=== PATIENT | female | born 1945 | race Caucasian/White ===

== ENCOUNTER 2018-01-14 10:29 | Emergency (ER) | payer MEDICARE, OTHER ==
[~2018-01-14 10:29] MED LIST: GABA-529 PO; IBUP-2076 PO; PRAM0.122 PO; SIMV20TA6 PO; VALA100027 PO
[2018-01-14] MEDS ORDERED: PREDNISONE 20 MG TABLET ONE (10:41)
== END 2018-01-14 12:19 | disposition home or self-care (01) ==
LOC: EDH 10:29
DX: I87.8 Other specified disorders of veins (principal); M17.0 Bilateral primary osteoarthritis of knee; R60.0 Localized edema; E78.5 Hyperlipidemia, unspecified; Z87.891 Personal history of nicotine dependence
CPT/HCPCS: 93971

== ENCOUNTER 2018-11-20 11:21 | Emergency (ER) | payer MEDICARE, OTHER ==
[2018-11-20] MEDS ORDERED: HYDROCODONE/ACETAMINOPHEN 5/325 MG TAB ONE (11:54)
== END 2018-11-20 12:36 | disposition home or self-care (01) ==
LOC: EDH 11:21
DX: S46.811A Strain of other muscles, fascia and tendons at shoulder and upper arm level, right arm, initial encounter (principal); E78.5 Hyperlipidemia, unspecified; Z87.891 Personal history of nicotine dependence; X50.0XXA Overexertion from strenuous movement or load, initial encounter; Y93.89 Activity, other specified; Y92.098 Other place in other non-institutional residence as the place of occurrence of the external cause; Y99.8 Other external cause status
CPT/HCPCS: 73060